=== PATIENT | male | born 1965 | race Caucasian/White ===

== ENCOUNTER 2021-12-02 17:05 | Emergency (ER) | payer OTHER, SELFPAY ==
--- NOTE | 2021-12-02 18:27 | XR_ITS ---
PROCEDURE INFORMATION: Exam: XR Chest Exam date and time: 12/02/2021 6:27 PM Age: 56 years old Clinical indication: Other: Covid TECHNIQUE: Imaging protocol: XR of the chest. Views: 2 views. COMPARISON: [facility] CT CHEST W/O CONTRAST 12/05/2014 8:27 PM FINDINGS: Lungs: Lung volumes are mildly diminished, greater on the right with mild elevation the right hemidiaphragm. Streaky and patchy predominant perihilar and bibasilar opacities are nonspecific. No focal areas of consolidation. Calcified granuloma in the right lower lobe is present. Pleural spaces: No pleural effusions or appreciable adenopathy. Negative for pneumothorax. Heart/Mediastinum: Cardiac silhouette and pulmonary vasculature are within range of normal. Bones/joints: There is no evidence of acute fracture. IMPRESSION: 1. Mildly diminished lung volumes, greater on the right. 2. Streaky and patchy nonspecific predominantly perihilar and bibasilar opacities without focal areas of consolidation. Findings are age indeterminate without prior studies for comparison but considerations include atelectasis, edema, or pneumonia.
--- NOTE | 2021-12-02 18:34 | HMH.EDUTC ---
[facility] Disposition Clinical Impression: COVID-19 Disposition: Home, Self-Care Condition on Discharge: Good Instructions: DI for COVID-19 (Suspected or Confirmed ), Preventing the Spread of Coronavirus Discharge Instructions Additional Instructions: Drink plenty of fluids. Take tylenol or ibuprofen for pain or fever. Take the medications as directed. Follow up with your regular doctor. GO TO THE ER FOR ANY WORSENING SYMPTOMS Don't start the oral steroids until tomorrow, since you had the shot here today. The cough medication (promethazine dm) will make you drowsy, so don't drive or operate heavy machinery after taking it. Prescriptions: Promethazine/Dextromethorphan [Promethazine-Dm Syrup] 5 ml PO Q6HP PRN #240 ml PRN Reason: Cough Transmission Status: Received by [id number] dexAMETHasone [Decadron] 6 mg PO DAILY 6 Days #6 tab Transmission Status: Received by [id number] Azithromycin [Z-Saulo 250mg Tab*] 250 mg PO UD DOSE PK #6 tab Transmission Status: Received by [id number] Referrals: Provider,Referral, MD [Primary Care Provider] - Time of Disposition: 20:28 Medical Decision Making - Medical Records Medical records reviewed: No: I reviewed the patient's medical records. - Jose David Inquiry Pt receiving controlled substance: No Vital Signs: 12/02/21 18:40 12/02/21 20:35 Temperature 98.1 F 98.1 F Temperature Source Oral Pulse Rate 84 Pulse Rate [Left] 84 Respiratory Rate 18 18 Blood Pressure 131/86 Blood Pressure [Right Arm] 131/86 Blood Pressure Mean [Right Arm] 101 02 Sat by Pulse Oximetry 95 Orders (Tests/Meds): ED MEDICATIONS Discontinued Medications Generic Name Dose Route Start Last Admin Trade Name Freq PRN Reason Stop Dose Admin Sodium Chloride 1,000 mls @ 999 mls/hr 12/02/21 20:00 12/02/21 19:56 Sod Chlor 0.9% 1000ml Bag IV 12/02/21 21:00 999 mls/hr .Q1H1M ZEINAB Administration Ondansetron HCl 4 mg 12/02/21 19:54 12/02/21 19:56 Ondansetron 4mg/2ml Vial IV 12/02/21 19:55 4 mg ONCE ONE Administration [facility] HPI - General Stated complaint: covid pos on 11/24, treated for symptoms Time Seen by Provider: 12/02/21 18:34 - History of Present Illness Provider Complaint: He states that he was diagnosed with covid-19 on 11/24. Since then he has felt very bad. He stopped running a fever 3 days ago, but he is still coughing a lot and feeling short of breath with any activitiy. He denies any chest pain. He still cannot taste or smell. - Related Data Previous Rx's Medication Instructions Recorded naproxen 500 mg tablet,delayed 500 mg PO BID PRN #60 tab 01/13/19 release Azithromycin [Z-Saulo 250mg Tab*] 250 mg PO UD DOSE PK #6 tab 12/02/21 Promethazine/Dextromethorphan 5 ml PO Q6HP PRN #240 ml 12/02/21 [Promethazine-Dm Syrup] dexAMETHasone [Decadron] 6 mg PO DAILY 6 Days #6 tab 12/02/21 Allergies Allergy/AdvReac Type Severity Reaction Status Date / Time No Known Allergies Allergy Verified 01/13/19 13:47 [facility] History - Hepatitis A Screen Attestation statement:: This patient has been screened for Hepatitis A risk factors. I have reviewed the patient's past medical history: Yes Other Surgeries: Yes: No Previous Surgery - Social History Smoking Status: Never smoker Alcohol Intake: never Occupational Status: employed Family Hx:: No significant family history ROS Obtained: Yes All systems reviewed & no additional complaints - Constitutional Constitutional: Reports chills, Denies fever(s), Reports poor appetite, Reports malaise - Eyes Eyes: Denies eye discharge - ENT Ears, Nose, Mouth, and Throat: Denies dizziness, Denies otalgia, Reports sore throat - Cardiovascular Cardiovascular: Denies chest pain - Respiratory Respiratory: Denies chest congestion, Reports cough, Reports non-productive cough, Denies dyspnea, Denies stridor, Denies wheezing Physical Exam - General
[2021-12-02 18:40] VITALS: BP 131/86; PULSE 84; RESP 18; TEMP 36.7; O2SAT 95; BMI 27.8
[2021-12-02 20:35] VITALS: BP 131/86; PULSE 84; RESP 18; TEMP 36.7
== END 2021-12-02 20:36 | disposition home or self-care (01) ==
PROVIDERS: Emergency Provider Nurse Practitioner Family
DX: U07.1 COVID-19 (principal)
CPT/HCPCS: 71046; 96365; 96375; 99202; G0463; J2405

== ENCOUNTER 2024-03-26 13:05 | Outpatient (CLI) | payer SELFPAY | END 2024-03-26 23:59 | disposition home or self-care (01) | LOC: LAB.DROPOF 03-27 13:05 | PROVIDERS: PCP Student in an Organized Health Care Education/Training Program; Visit Provider Student in an Organized Health Care Education/Training Program | DX: M79.602 Pain in left arm (principal); W57.XXXA Bitten or stung by nonvenomous insect and other nonvenomous arthropods, initial encounter; B95.62 Methicillin resistant Staphylococcus aureus infection as the cause of diseases classified elsewhere | CPT/HCPCS: 87070; 87205 ==

== ENCOUNTER 2025-02-11 11:55 | Outpatient (CLI) | payer SELFPAY ==
[2025-02-11 16:39] LABS: Coronavirus 19, PCR Not Detected (NotDetected); Human Rhinovirus Not Detected (NotDetected); Influenza B, PCR Not Detected (NotDetected); Respiratory Syncytial Virus Not Detected (NotDetected)
[2025-02-11 23:18] LABS: Influenza A, PCR Detected (NotDetected)
== END 2025-02-11 23:59 | disposition home or self-care (01) ==
LOC: LAB.DROPOF 02-12 12:05
PROVIDERS: PCP Nurse Practitioner; Visit Provider Nurse Practitioner
DX: R50.9 Fever, unspecified (principal); J09.X9 Influenza due to identified novel influenza A virus with other manifestations
CPT/HCPCS: 87631